=== PATIENT | female | born 1990 | race Two or more races ===

== ENCOUNTER → 2016-08-28 | Outpatient (CLI) | payer MEDICAID ==
--- NOTE | 2016-08-28 14:14 | US ---
August 28, [address] Markham, Thank you for requesting consultation and a follow up ultrasound for your patient, Mrs. Myke kingston. As you know, Shelley is a 26 year old G 6, P 1132 . Her due date is 11/17/16 by 6 week ultras ound. Her current gestational age based on this dating is is 28 weeks 3 days. She is seen today for a follow up assessment of growth secondary to SGA. She has a history of at 36 weeks a nd is on vaginal progesterone. ULTRASOUND Number of fetuses: 1 Placental location: Posterior presentation: Cephalic Heart Rate: 146 bpm Cervix: 3.0-3.3 cm viewed transabdominally Maximum Vertical Pocket: 4.0 cm Measurements: Biparietal diameter: 74 mm 29 weeks, 6 days Head circumference: 278 mm 30 weeks, 4 days Abdominal circumference: 252 mm 29 weeks, 3 days Femur length: 53 mm 28 weeks, 1 days Humerus length: 49 mm 28 weeks, 4 days Transcerebellar diameter: 33 mm 28 weeks, 3 days Average age by ultrasound: 29 weeks, 4 days Estimated weight: 1333 gm weight percentile: 62 % ANATOMY anatomy was previously assessed. Today the following structures were visualized and appeared n ormal: Four-chamber view of the heart, intraventricular septum, limited views of the outflow t racts, stomach, lateral ventricle, cerebellum, bilateral kidneys, and bladder. IMPRESSION: 1. Intrauterine at 28 weeks, 3 days; ANDERS of 11/17/16. 2. growth is appropriate size for dates. 3. anatomy was previously assessed and today's ultrasound continues to provide reassurance of normal appearing anatomy. 4. Normal amniotic fluid volume 5. History of SGA 6. History of at 36 weeks on vaginal progesterone. 7. History of bulimia RECOMMENDATIONS: I was pleased to review today's ultrasound with your patient. I reassured her that growth is normal at the 62 %ile for this gestational age. The amniotic fluid volume is normal. We performed a review of the anatomy which was limited by gestational age and position, but no overt abnormali ties were noted. She is recommended to return in 4-6 weeks for a final assessment of growth. Thank you for allowing us the opportunity to evaluate your patient. Should you have any further ques tions or concerns please do not hesitate to contact me. Approximately 15 minutes were spent with the patient and 10 minutes were spent in face to face consu ltation. Evie Kitchen MD [employer] [facility] Diagnosis Department of Obstetrics & Gynecology [facility]
--- NOTE | 2016-08-28 17:03 | US ---
Obstetric Ultrasound History: 26-year-old with estimated gestational age of 20 weeks 3 days and EDC of November 17, 2016. Comparison: OB ultrasound July 11, 2016. Findings: Number: 1 Presentation: Vertex. Placental location: Posterior. No previa. Cervix: Closed, measuring 3.3 cm transabdominally Maximum vertical pocket: 4.0 cm Biometry: Biparietal diameter: 74 mm 29 weeks, 6 days Head circumference: 278 mm 30 weeks, 4 days Abdominal circumference: 252 mm 29 weeks, 3 days Femur length: 53 mm 28 weeks, 1 days Humerus length: 48 mm 28 weeks, 4 days Transcerebellar diameter: 33 mm 28 weeks, 3 days Average ultrasound age: 29 weeks, 4 days EDC based on today's average ultrasound age: November 09, 2016 Estimated weight is 1333 gms +/- 195 gms. The estimated weight percentile is 62 % based o n previous dating. Detailed anatomic survey was previously performed and is not repeated. heart rate is 146. The four-chamber heart, outflow tracts, left-sided stomach, lateral ventricle, posterior fossa, kid neys, and bladder are visualized and normal. Impression: 1. Living zelaya . Size concordant with dates. 2. Unremarkable anatomy. Please see separate dictation for consultation performed by Evie Layne MD, the same day.
== END ==
LOC: FIMAGING 09:38
PROVIDERS: ATTEND Student in an Organized Health Care Education/Training Program
DX: Z34.83 Encounter for supervision of other normal pregnancy, third trimester (principal); Z3A.28 28 weeks gestation of pregnancy

== ENCOUNTER → 2016-10-02 | Outpatient (CLI) | payer MEDICAID | LOC: FIMAGING 13:20 | PROVIDERS: ATTEND Student in an Organized Health Care Education/Training Program | DX: Z34.93 Encounter for supervision of normal pregnancy, unspecified, third trimester (principal); Z3A.33 33 weeks gestation of pregnancy ==